=== PATIENT | male | born 1975 | race African-American/Black ===

== ENCOUNTER 2021-10-16 18:13 | Emergency (ER) | payer MEDICAID, OTHER ==
[~2021-10-16] VITALS: Ht 190.5 cm; Wt 110.4 kg
[~2021-10-16 18:13] MED LIST: NORPTMEDS CO
[2021-10-16 22:35] VITALS: BP 152/95
[2021-10-16] MEDS ORDERED: BACL10TA PO (22:39)
== END 2021-10-16 22:58 | disposition home or self-care (01) ==
LOC: ER 18:13
DX: S16.1XXA Strain of muscle, fascia and tendon at neck level, initial encounter (principal); E11.9 Type 2 diabetes mellitus without complications; J45.909 Unspecified asthma, uncomplicated; F17.210 Nicotine dependence, cigarettes, uncomplicated; V49.9XXA Car occupant (driver) (passenger) injured in unspecified traffic accident, initial encounter; Y93.89 Activity, other specified; Y92.410 Unspecified street and highway as the place of occurrence of the external cause; Y99.8 Other external cause status
CPT/HCPCS: 70450; 72125